=== PATIENT | male | born 1985 | race Two or more races ===

== ENCOUNTER 2018-07-21 13:13 | Inpatient (IN) | payer MEDICAID ==
[2018-07-21 15:50] LABS: BASO # 0.1 K/uL (0.0-0.2); BASO % 0.6 % (0.0-2.0); EOS # 0.2 K/uL (0.0-0.7); EOS % 1.6 % (0.0-4.0); HEMOGLOBIN 14.9 g/dL (12.0-18.0); LYMPH # 2.4 K/uL (1.0-4.3); LYMPH % 25.7 % (20.0-40.0); MEAN CELL VOLUME 91.5 fl (80.0-94.0); MEAN CORPUSCULAR HEMOGLOBIN 30.6 pg (27.0-31.0); MEAN CORPUSCULAR HGB CONC 33.4 g/dL (33.0-37.0); MEAN PLATELET VOLUME 8.3 fl (7.2-11.7); MONO % 10.5 % (0.0-10.0); NEUT # 5.8 K/uL (1.8-7.0); NEUT % 61.6 % (50.0-75.0); NRBC % 0.1 % (0.0-0.0); RBC 4.89 Mil/uL (4.40-5.90); RED CELL DISTRIBUTION WIDTH 13.9 % (11.5-14.5); WHITE BLOOD COUNT 9.5 K/uL (4.8-10.8)
--- NOTE | 2018-07-21 15:58 | RAD ---
Date of service: 07/21/2018 HISTORY: productive cough COMPARISON: No prior. TECHNIQUE: Chest PA and lateral FINDINGS: LUNGS: No active pulmonary disease. PLEURA: No significant pleural effusion identified. No pneumothorax apparent. CARDIOVASCULAR: Normal. OSSEOUS STRUCTURES: No significant abnormalities. VISUALIZED UPPER ABDOMEN: Normal. OTHER FINDINGS: None. IMPRESSION: No active disease.
[2018-07-21 16:03] LABS: BLOOD UREA NITROGEN 14 mg/dl (9-20); GFR NON-AFRICAN AMERICAN > 60
[2018-07-21 16:04] LABS: ALB/GLOB RATIO 1.3 (1.0-2.1); ALBUMIN 4.3 g/dL (3.5-5.0); ALT/SGPT 54 U/L (21-72); AST/SGOT 40 U/L (17-59); CALCIUM 9.3 mg/dL (8.4-10.2)
[2018-07-21 16:20] LABS: BARBITURATES, UR NEGATIVE (NEGATIVE); BENZODIAZEPINES, UR NEGATIVE (NEGATIVE); OPIATES, UR NEGATIVE (NEGATIVE); PHENCYCLIDINE, UR NEGATIVE (NEGATIVE)
--- NOTE | 2018-07-21 17:04 | ED PDOC ---
HPI: Psych/Substance Abuse Chief Complaint (Provider): Psychiatric Evaluation History Per: Patient History/Exam Limitations: no limitations Onset/Duration Of Symptoms: Days (x3) Current Symptoms Are (Timing): Still Present Additional Complaint(s): 32 year old male with hx of bipolar disorder presents to the ED for evaluation of suicidal ideation for the past three days with a plan to cut his wrists. Patient admits to being complaint on medications for his bipolar, and follows up with a therapist and a psychiatrist with whom he had appointments with today and tomorrow respectively. Due to him feeling as if he needed immediate help, he informed his doctors he was just coming straight to the ER instead of waiting f or their appointments. He is worried about harming himself and is seeking admission to the hospital. Additionally, he is complaining of a mild cough productive of yellow sputum. Otherwise denies homicidal ideation, visual / auditory hallucinations, fever, chills, headache, back pain, nausea, vomiting, abdominal pain, chest pain, and shortness of breath. PMD: Jenn Castro <Anette Mclaughlin - Last Filed: 07/22/18 23:53> <Belinda Green - Last Filed: 07/23/18 17:27> Time Seen by Provider: 07/21/18 13:30 Chief Complaint (Nursing): Psychiatric Evaluation Supervising Attending Note - Attestation: I have personally seen and examined this patient.: No I have reviewed all pertinent clinical information, including history, physical exam and plan: Yes <Belinda Green - Last Filed: 07/23/18 17:27> Past Medical History Reviewed: Historical Data Vital Signs: Last Vital Signs Temp 98.1 F 07/21/18 13:17 Pulse 74 07/21/18 13:17 Resp 18 07/21/18 13:17 BP 139/75 07/21/18 13:17 Pulse Ox 99 07/21/18 13:17 - Medical History PMH: Bipolar Disorder Denies: Diabetes, Hepatitis, HIV, HTN, Seizures, Sexually Transmitted Disease - Surgical History Surgical History: No Surg Hx - Family History Family History: States: Unknown Family Hx - Social History Current smoker - smoking cessation education provided: No Alcohol: None Drugs: Denies <Anette Mclaughlin - Last Filed: 07/22/18 23:53> Vital Signs: Last Vital Signs Temp 98.8 F 07/23/18 09:20 Pulse 70 07/23/18 09:20 Resp 17 07/23/18 09:20 BP 137/70 07/23/18 09:20 Pulse Ox 99 07/22/18 23:54 <Belinda Green F - Last Filed: 07/23/18 17:27> - Home Medications Home Medications: Ambulatory Orders Medication Instructions Recorded Lamotrigine [Lamictal] 200 mg PO DAILY 07/21/18 - Allergies Allergies/Adverse Reactions: Allergies Allergy/AdvReac Type Severity Reaction Status Date / Time No Known Allergies Allergy Verified 07/21/18 13:17 Review of Systems ROS Statement: Except As Marked, All Systems Reviewed And Found Negative Constitutional: Negative for: Fever, Chills Cardiovascular: Negative for: Chest Pain Respiratory: Positive for: Cough (mild productive of yellow sputum). Negative for: Shortness of Breath Gastrointestinal: Negative for: Nausea, Vomiting, Abdominal Pain Musculoskeletal: Negative for: Back Pain Neurological: Negative for: Headache Psych: Positive for: Suicidal ideation (with plan; but no homicidal ideation). Negative for: Other (visual / auditory hallucinations) <Anette Mclaughlin - Last Filed: 07/22/18 23:53> Physical Exam - Reviewed Nursing Documentation Reviewed: Yes Vital Signs Reviewed: Yes - Physical Exam Appears: Positive for: No Acute Distress Head Exam: Positive for: ATRAUMATIC, NORMOCEPHALIC Skin: Positive for: Normal Color, Warm, Dry. Negative for: Rash Eye Exam: Positive for: Normal appearance, EOMI, PERRL ENT: Positive for: Normal ENT Inspection Neck: Positive for: Normal, Painless ROM, Supple Cardiovascular/Chest: Positive for: Regular Rate, Rhythm Respiratory: Positive for: Rhonchi (diffuse scattered bilaterally, but no retracting). Negative for: Wheezing, Respiratory Distress Extremity: Positive for: Normal ROM Neurologic/Psych: Positive for: Alert, Oriented (x3) <Anette Mclaughlin - Last Filed: 07/22/18 23:53> - Laboratory Results Result Diagrams: 07/21/18 15:30 07/21/18 14:40 - ECG O2 Sat by Pulse Oximetry: 99 (RA) Pulse Ox Interpretation: Normal <Anette Mclaughlin - Last Filed: 07/22/18 23:53> - Laboratory Results Result Diagrams: 07/21/18 15:30 07/21/18 14:40 <Belinda Green - Last Filed: 07/23/18 17:27> Medical Decision Making Medical Decision Making: Time: 1337 Initial Impression: suicidal ideation with plan, bipolar disorder Initial Plan: --EKG --Alcohol serum --CMP --Drug screen --Crisis eval --CBC with differential --CXR --1:1 observation 1556 CXR FINDINGS: LUNGS: No active pulmonary disease. PLEURA: No significant pleural effusion identified. No pneumothorax apparent. CARDIOVASCULAR: Normal. OSSEOUS STRUCTURES: No significant abnormalities. VISUALIZED UPPER ABDOMEN: Normal. OTHER FINDINGS: None. IMPRESSION: No active disease. 1749 Case discussed with home weatherizing worker who states pt is to be admitted with the diagnosis of bipolar disorder under the instruction of Dr. Ibarra. Talked with attending Dr. Kerns who is to place the order for admission. Scribe Attestation: Documented by Nela Uribe, acting as a scribe for Anette Mclaughlin PA-C. Provider Scribe Attestation: All medical record entries made by the Scribe were at my direction and personally dictated by me. I have reviewed the chart and agree that the record a ccurately reflects my personal performance of the history, physical exam, medical decision making, and the department course for this patient. I have also personally directed, reviewed, and agree with the discharge instructions and disposition. <Anette Mclaughlin - Last Filed: 07/22/18 23:53> Disposition - Patient ED Disposition Is Patient to be Admitted: Yes - Disposition Disposition Time: 15:00 - Pt Status Changed To: Hospital Disposition Of: Inpatient - Admit Certification Admit to Inpatient:: After my assessment, the patient will require hospitalization for at least two midnights. This is because of the severity of symptoms shown, intensity of services needed, and/or the medical risk in this patient being treated as an outpatient. <Anette Mclaughlin - Last Filed: 07/22/18 23:53> <Belinda Green - Last Filed: 07/23/18 17:27> - Clinical Impression Clinical Impression: Bipolar disorder - Disposition Condition: STABLE
[2018-07-21] MEDS ORDERED: Alum-Mag Hydrox-Simethicone Susp (30 mL) PO PRN (21:25)
[2018-07-21] MEDS ORDERED: DiphenhydrAMINE 50 mg/ml Inj IM PRN (21:25)
[2018-07-21] MEDS ORDERED: Magnesium Hydroxide Susp 30 ml UD PO PRN (21:25)
--- NOTE | 2018-07-21 21:42 | PCM.BM ---
<Dariel Mcdonald P - Last Filed: 07/21/18 21:40> Treatment Plan Problems - Problems identified on initial assessmt Ineffective Impulse Control Date Initiated: 07/21/18 Time Initiated: 21:40 Assessment reference: NA Status: Active Self Harm Date Initiated: 07/21/18 Time Initiated: 21:41 Assessment reference: NA Status: Active Treatment assets and liabiliti Patient Assests: cooperative, educated, ADL independent, physically healthy, good support system, negotiates basic needs, cognitively intact Patient Liabilities: substance abuse - Milieu Protocol Maintain good personal hygiene: daily Encourage regular showers, daily Remind patient to perform daily oral care, daily Assist patient to perform ADL's Conduct patient checks and document Observation sheet: Q15 minutes Maintain personal safety: every shift Educate patient to report safety concerns to staff, every shift Monitor environment for contraband/sharps Medication safety: Monitor for expected outcome, potential side effects: every shift, Assess barriers to learning: every shift, Assess readiness for medication education: every shift <Marian Gant - Last Filed: 07/23/18 15:12> - Diagnosis (1) Suicidal ideation Status: Acute Interventions: psychotherapy, pharmacotherapy 07/23/18 15:12
--- NOTE | 2018-07-22 07:03 | CARD ---
APPROVED REPORT Date of service: 07/21/2018 EKG Measurement Heart [id number] <Conclusion> Normal sinus rhythm with sinus arrhythmia Normal ECG
[2018-07-22 09:45] LABS: T4 7.56 ug/dl (5.5-11.0)
[2018-07-22] MEDS ORDERED: Venlafaxine 37.5 mg ER Cap PO STA (11:49)
--- NOTE | 2018-07-22 13:27 | PCM.PSYCH ---
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 was given the money to complete the roject with the deadline at end of july yet he did spend the money and because of his depression was unable to do the work which makes him feel overwhelmed, pt two weeks ago did cut his wrist superficially pt reported low energy poor sleep anhedonia, poor appetite, , increased sleep,continues to have passive suicidal ideation on the unit without active plan denied perceptual disturbances, uses cannabis twice a week Current Medications: Active Medications Generic Name Dose Route Start Last Admin Trade Name Freq PRN Reason Stop Dose Admin Acetaminophen 650 mg 07/21/18 21:25 Tylenol 325mg Tab PO Q4 PRN pain level 4-7 Al Hydrox/Mg Hydrox/Simethicone 30 ml 07/21/18 21:25 Maalox Plus 30 Ml PO Q4 PRN Dyspepsia Diphenhydramine HCl 50 mg 07/21/18 21:25 Benadryl IM Q6 PRN Extrapyramidal S/S Unable PO Diphenhydramine HCl 50 mg 07/21/18 21:25 Benadryl PO Q6 PRN Extrapyramidal Symptoms Diphenhydramine HCl 50 mg 07/21/18 21:28 07/21/18 23:19 Benadryl PO 50 mg HS PRN Administration Sleep Haloperidol 5 mg 07/21/18 21:25 Haldol PO Q4 PRN Agitation Haloperidol Lactate 5 mg 07/21/18 21:25 Haldol IM Q4 PRN Agitation, Unable to Take PO Lorazepam 1 mg 07/21/18 21:25 Ativan IM Q8H PRN Anxiety/Agitation,Unable PO Lorazepam 1 mg 07/21/18 21:25 Ativan PO Q8 PRN Anxiety/Agitation Magnesium Hydroxide 30 ml 07/21/18 21:25 Milk Of Magnesia PO HS PRN Constipation Past Psychiatric History - Past Psychiatric History Explanation of prior treatment: two inpatient hospitalizations for depression, age 24 at [facility] and past april at [facility] History of ETOH/Drug Use: hx of cocaine and cannabis use Pertinent Medical Hx (Current Medical&Sleep Prob, Allergies): Allergies Allergy/AdvReac Type Severity Reaction Status Date / Time No Known Allergies Allergy Verified 07/21/18 13:17 Lamotrigine [Lamictal] 200 mg PO DAILY 07/21/18 Mental Status Examination - Personal Presentation Personal Presentation: Looks stated age - Affect Affect: Constricted, Depressed - Motor Activity Motor Activity: Psychomotor Retardation - Reliability in Providing Information Reliability in Providing Information: Fair - Speech Speech: Relevant - Mood Mood: Depressed - Formal Thought Process Formal Thought Process: No Impairment - Obsessions/Compulsions Obsessions: No Compulsions: No - Cognitive Functions Orientation: Person, Place, Situation, Time Sensorium: Alert Estimate of Intelligence: Average - Risk Risk: Suicidal, Self-mutilation, Diminished functioning - Strength & Assets Inventory Strength & Assets Inventory: Education - Limitations Additional comments: financial stressors DSM 5 DX - DSM 5 DSM 5 Diagnosis: bipolar II disorder MRE depressed severe - Recommended/Plan of Treatment Treatment Recommendations and Plan of Treatment: lamictal 200mg daily effexor 37.5mg daily CBT group and supportive therapy 'internal medicine consult
--- NOTE | 2018-07-22 19:12 | CP.PCM.CON ---
History of Present Illness - History of Present Illness History of Present Illness: 32 yo male with history of Bipolar DO admitted to psyche unit because of suicidal ideation. Review of Systems - Review of Systems All systems: reviewed and no additional remarkable complaints except (aside from those mentioned above, 12 point system review were negative by me) Past Patient History - Tetanus Immunizations Tetanus Immunization: Unknown - Past Medical History & Family History Past Medical History?: No Past Family History: Reviewed and not pertinent - Past Social History Smoking Status: Light Smoker < 10 Cigarettes Daily Chewing Tobacco Use: No Cigar Use: No Alcohol: Occasional Drugs: Cannabis - CARDIAC Hx Cardiac Disorders: No Hx Hypertension: No - PULMONARY Hx Respiratory Disorders: No Hx Tuberculosis: No - NEUROLOGICAL Hx Neurological Disorder: No Hx Seizures: No - HEENT Hx HEENT Problems: No - RENAL Hx Chronic Kidney Disease: No - ENDOCRINE/METABOLIC Hx Endocrine Disorders: No - HEMATOLOGICAL/ONCOLOGICAL Hx Blood Disorders: No Hx Human Immunodeficiency Virus (HIV): No - INTEGUMENTARY Hx Dermatological Problems: No - MUSCULOSKELETAL/RHEUMATOLOGICAL Hx Musculoskeletal Disorders: No - GASTROINTESTINAL Hx Gastrointestinal Disorders: No - GENITOURINARY/GYNECOLOGICAL Hx Genitourinary Disorders: No Hx Sexually Transmitted Disorders: No - PSYCHIATRIC Hx Substance Use: Yes - SURGICAL HISTORY Hx Surgeries: Yes Other/Comment: right knee sx @ age 11 - ANESTHESIA Hx Anesthesia: Yes Hx Anesthesia Reactions: No Meds Allergies/Adverse Reactions: Allergies Allergy/AdvReac Type Severity Reaction Status Date / Time No Known Allergies Allergy Verified 07/21/18 13:17 - Medications Medications: Current Medications Acetaminophen (Tylenol 325mg Tab) 650 mg PO Q4 PRN PRN Reason: pain level 4-7 Al Hydrox/Mg Hydrox/Simethicone (Maalox Plus 30 Ml) 30 ml PO Q4 PRN PRN Reason: Dyspepsia Diphenhydramine HCl (Benadryl) 50 mg IM Q6 PRN PRN Reason: Extrapyramidal S/S Unable PO Diphenhydramine HCl (Benadryl) 50 mg PO Q6 PRN PRN Reason: Extrapyramidal Symptoms Diphenhydramine HCl (Benadryl) 50 mg PO HS PRN PRN Reason: Sleep Last Admin: 07/21/18 23:19 Dose: 50 mg Haloperidol (Haldol) 5 mg PO Q4 PRN PRN Reason: Agitation Haloperidol Lactate (Haldol) 5 mg IM Q4 PRN PRN Reason: Agitation, Unable to Take PO Lamotrigine (Lamictal) 200 mg PO DAILY [facility] Lorazepam (Ativan) 1 mg IM Q8H PRN PRN Reason: Anxiety/Agitation,Unable PO Lorazepam (Ativan) 1 mg PO Q8 PRN PRN Reason: Anxiety/Agitation Magnesium Hydroxide (Milk Of Magnesia) 30 ml PO HS PRN PRN Reason: Constipation Trazodone HCl (Desyrel) 50 mg PO HS PRN PRN Reason: Insomnia Venlafaxine HCl (Effexor Xr) 37.5 mg PO DAILY [facility] Physical Exam - Constitutional Appears: No Acute Distress - Head Exam Head Exam: ATRAUMATIC - Eye Exam Eye Exam: absent: Scleral icterus - ENT Exam ENT Exam: Mucous Membranes Moist - Neck Exam Neck exam: Negative for: Meningismus - Respiratory Exam Respiratory Exam: absent: Rales, Rhonchi, Wheezes, Respiratory Distress - Cardiovascular Exam Cardiovascular Exam: REGULAR RHYTHM, +S1, +S2 - GI/Abdominal Exam GI & Abdominal Exam: Soft. absent: Tenderness - Rectal Exam Rectal Exam: Deferred - Extremities Exam Extremities exam: Negative for: pedal edema - Back Exam Back exam: NORMAL INSPECTION - Neurological Exam Neurological exam: Alert, Oriented x3 - Psychiatric Exam Psychiatric exam: Normal Affect - Skin Skin Exam: Dry, Intact Results - Vital Signs Recent Vital Signs: Last Vital Signs Temp 97.3 F L 07/21/18 21:30 Pulse 54 L 07/21/18 21:30 Resp 18 07/21/18 21:30 BP 140/71 07/21/18 21:30 Pulse Ox 98 07/21/18 20:08 - Labs Result Diagrams: 07/21/18 15:30 07/21/18 14:40 Labs: Laboratory Results - last 24 hr 07/22/18 07/22/18 07/22/18 09:05 09:05 09:05 Hemoglobin A1c 5.4 Triglycerides 127 Cholesterol 194 LDL Cholesterol Direct 114 HDL Cholesterol 39 Thyroxine (T4) 7.56 TSH 3rd Generation 1.53 RPR Nonreactive Assessment & Plan (1) Suicidal ideation Status: Acute Comment: psyche is managing
[2018-07-22 23:55] VITALS: O2SAT 99
[2018-07-23] MEDS: Venlafaxine 37.5 mg ER Cap PO SCH (08:44)
--- NOTE | 2018-07-23 15:24 | PCM.PYCHPN ---
Psychiatric Progress Note - Psychiatric Progress Note Patient seen today, length of contact: pt evaluated discussed with team chart reviewed Patient Chief Complaint: I still get thoughts to hurt myself but I try to cope with them Problems Identified/Issues Discussed: pt evaluated with treatment team, continues to feel down, passive suicidal ideation without current plan, reported poor sleep with late insomnia, discussed with pt gradualy increasing lamictal and effexor. no reported side effects denied any current perceptual disturbances, encouraged to attend groups Medical Problems: two inpatient hospitalizations for depression, age 24 at [facility] and past april at [facility] DSM 5 Symptoms Update: bipolar II disorder depressed severe without psychotic features Medication Change: Yes Medical Record Reviewed: Yes Mental Status Examination - Cognitive Function Orientation: Person, Place, Situation, Time Memory: Intact Attention: WNL Concentration: WNL Association: WNL Fund of Knowledge: [facility] Decription of patient's judgement and insights: partial insight , fair judgment - Mood Mood: Depressed - Affect Affect: Constricted, Depressed - Speech Speech: Appropriate - Formal Thought Process Formal Thought Process: No Impairment Psychotic Thoughts and Behaviors: pt denied psychotic symptoms , non elicited - Suicidal Ideation Suicidal Ideation: No - Homicidal Ideation Homicidal Ideation: No Goal/Treatment Plan - Goal/Treatment Plan Need for Continued Stay: Severe depression anxiety, Discharge may exacerbated symptoms Progress Toward Problem(s) and Goals/Treatment Plan: lamictal 225mg daily and effexor 37.5mg daily CBT group and supportive therapy ' Estimated Date of D/C: 07/25/18
[2018-07-24] MEDS: Venlafaxine 37.5 mg ER Cap PO SCH (08:48)
[2018-07-24] MEDS ORDERED: Divalproex 500 mg DR(BID formulation) PO STA (10:56)
--- NOTE | 2018-07-24 16:54 | PCM.PYCHPN ---
Psychiatric Progress Note - Psychiatric Progress Note Patient seen today, length of contact: pt evaluated discussed with team chart reviewed Patient Chief Complaint: I have so much anger inside me and I want to destroy things Problems Identified/Issues Discussed: pt observed pacing on the unit angry , irritable , anxious and edgy, reporting feeling he could not sit still and having a lot of anger , feeling destructive , noted to have scratches on his wrist , pt reported he did push and scratch his hand against the window screen as he had thoughts to self mutilate to feel better pt reported that he continues to have rapid mood swings with times of elation and high energy alternating with agitation and anger within hours, reported racing thoughts, discussed with pt possibility of rapid cycling bipolar and the need to start depakote with gradual down titration of lamictal, CBT provided, discussing with pt the need to develop healthier coping skills other than self harm pt denied any current thoughts of self mutilation denied perceptual disturbances Medical Problems: two inpatient hospitalizations for depression, age 24 at [facility] and past april at [facility] DSM 5 Symptoms Update: bipolar disorder mixed severe Medication Change: Yes (start depakote) Medical Record Reviewed: Yes Mental Status Examination - Cognitive Function Orientation: Person, Place, Situation, Time Memory: Intact Attention: WNL Concentration: WNL Association: WNL Fund of Knowledge: [facility] Decription of patient's judgement and insights: partial insight , fair judgment - Mood Mood: Depressed, Anxious - Affect Affect: Constricted, Depressed Additional comments: labile, angry irritable - Speech Speech: Appropriate - Formal Thought Process Formal Thought Process: No Impairment Psychotic Thoughts and Behaviors: pt denied psychotic symptoms , non elicited - Suicidal Ideation Suicidal Ideation: No - Homicidal Ideation Homicidal Ideation: No Goal/Treatment Plan - Goal/Treatment Plan Need for Continued Stay: Severe depression anxiety, Discharge may exacerbated symptoms Progress Toward Problem(s) and Goals/Treatment Plan: start depakote 500mg bid decrease lamictal to 200mg with plan to downtitrate gradually discontinue effexor monitor pt for psychopharmacological effects and side effect profile CBT group and supportive therapy ' Estimated Date of D/C: 07/25/18
[2018-07-25] MEDS ORDERED: Divalproex 500 mg DR(BID formulation) PO STA (12:02)
--- NOTE | 2018-07-25 14:19 | PCM.PYCHPN ---
Psychiatric Progress Note - Psychiatric Progress Note Patient seen today, length of contact: pt evaluated discussed with team chart reviewed Patient Chief Complaint: I still get irritable and I have thoughts to hurt myself Problems Identified/Issues Discussed: pt evaluated, presenting with labile affect, reported mood swings, racing thoughts, self harm thoughts with plan to cut wrist, pt unable to verbalize inducing stressors, , irritable and dysphoric with limited speech partial eye contact, denied perceptual disturbances, no reported side effects of medications CBT provided, discussing with pt the need to develop healthier coping skills other than self harm, discussed increasing depakote and adding abilify Medical Problems: two inpatient hospitalizations for depression, age 24 at [facility] and past april at [facility] DSM 5 Symptoms Update: bipolar I disorder mixed severe Medication Change: Yes (increase depakote ) Medical Record Reviewed: Yes Mental Status Examination - Cognitive Function Orientation: Person, Place, Situation, Time Memory: Intact Attention: WNL Concentration: WNL Association: WNL Fund of Knowledge: WNL Decription of patient's judgement and insights: partial insight , fair judgment - Mood Mood: Depressed, Anxious - Affect Affect: Constricted, Depressed Additional comments: dysphoric - Speech Speech: Soft - Formal Thought Process Formal Thought Process: No Impairment Psychotic Thoughts and Behaviors: pt denied psychotic symptoms , non elicited - Suicidal Ideation Suicidal Ideation: Yes - Homicidal Ideation Homicidal Ideation: No Goal/Treatment Plan - Goal/Treatment Plan Need for Continued Stay: Severe depression anxiety, Discharge may exacerbated symptoms Progress Toward Problem(s) and Goals/Treatment Plan: increase depakote 500mg daily and 1000mg qhs, will follow up on depakote level start abilify 5mg daily decrease lamictal to 100mg daily with plan to discontinue monitor pt for psychopharmacological effects and side effect profile CBT group and supportive therapy ' Estimated Date of D/C: 08/01/18
[2018-07-25] MEDS: Divalproex 500 mg DR(BID formulation) PO SCH (21:14)
--- NOTE | 2018-07-26 12:11 | PCM.PYCHPN ---
Psychiatric Progress Note - Psychiatric Progress Note Patient seen today, length of contact: pt evaluated discussed with team chart reviewed Patient Chief Complaint: I had a loot of night verma and racing thoughts I could not sleep Problems Identified/Issues Discussed: pt evaluated,continues to report racing thoughts, rapid cycling of mood, irritability, poor sleep, with night verma, passive suicidal thoughts without active plan or intent on the unit CBT provided, discussing with pt the need to develop healthier coping skills other than self harm, discussed increasing depakote and adding prazosin denied homicidal thoughts denied perceptual disturbances Medical Problems: two inpatient hospitalizations for depression, age 24 at [facility] and past april at [facility] DSM 5 Symptoms Update: bipolar disorder mixed severe borderline personality traits Medication Change: Yes (increase depakote ) Medical Record Reviewed: Yes Mental Status Examination - Cognitive Function Orientation: Person, Place, Situation, Time Memory: Intact Attention: WNL Concentration: WNL Association: [facility] Fund of Knowledge: [facility] Decription of patient's judgement and insights: partial insight , fair judgment - Mood Mood: Depressed, Anxious - Affect Affect: Constricted, Depressed Additional comments: labile , irritable - Speech Speech: Soft - Formal Thought Process Formal Thought Process: No Impairment Psychotic Thoughts and Behaviors: pt denied psychotic symptoms , non elicited - Suicidal Ideation Suicidal Ideation: No - Homicidal Ideation Homicidal Ideation: No Goal/Treatment Plan - Goal/Treatment Plan Need for Continued Stay: Severe depression anxiety, Discharge may exacerbated symptoms Progress Toward Problem(s) and Goals/Treatment Plan: pt denied any current active suicidal thoughts or intent on the unit, discontinue 1:1 observation increase depakote 500mg daily and 1000mg qhs, will follow up on depakote level abilify 5mg daily decrease lamictal to 50mg daily with plan to discontinue monitor pt for psychopharmacological effects and side effect profile CBT group and supportive therapy ' Estimated Date of D/C: 08/01/18
[2018-07-26] MEDS: Divalproex 500 mg DR(BID formulation) PO SCH (21:15)
[2018-07-27] MEDS: Divalproex 500 mg DR(BID formulation) PO SCH ×2 (09:06→21:22)
--- NOTE | 2018-07-27 10:53 | PCM.BM ---
Treatment Plan Problems - Problems identified on initial assessmt Ineffective Impulse Control Date Initiated: 07/21/18 Time Initiated: 21:40 Assessment reference: NA Status: Active Self Harm Date Initiated: 07/21/18 Time Initiated: 21:41 Assessment reference: NA Status: Active Hopelessness/Helplessness Date Initiated: 07/27/18 Time Initiated: 10:53 Assessment reference: NA Status: Active Treatment assets and liabiliti Patient Assests: cooperative, educated, ADL independent, physically healthy, good support system, negotiates basic needs, cognitively intact Patient Liabilities: substance abuse - Milieu Protocol Maintain good personal hygiene: daily Encourage regular showers, daily Remind patient to perform daily oral care, daily Assist patient to perform ADL's Conduct patient checks and document Observation sheet: Q15 minutes Maintain personal safety: every shift Educate patient to report safety concerns to staff, every shift Monitor environment for contraband/sharps Medication safety: Monitor for expected outcome, potential side effects: every shift, Assess barriers to learning: every shift, Assess readiness for medication education: every shift Milieu Narrative: pt denied any current active suicidal thoughts or intent on the unit, discontinue 1:1 observation increase depakote 500mg daily and 1000mg qhs, will follow up on depakote level abilify 5mg daily decrease lamictal to 50mg daily with plan to discontinue monitor pt for psychopharmacological effects and side effect profile CBT group and supportive therapy ' Discharge/Continuing Care - Treatment Team Participation Patient/Family/SO Statement: pt denied any current active suicidal thoughts or intent on the unit, discontinue 1:1 observation increase depakote 500mg daily and 1000mg qhs, will follow up on depakote level abilify 5mg daily decrease lamictal to 50mg daily with plan to discontinue monitor pt for psychopharmacological effects and side effect profile CBT group and supportive therapy '
--- NOTE | 2018-07-27 13:29 | PCM.PYCHPN ---
Psychiatric Progress Note - Psychiatric Progress Note Patient seen today, length of contact: pt evaluated discussed with team chart reviewed Patient Chief Complaint: I am not able to cope with my problems and I do not see a way out Problems Identified/Issues Discussed: pt evaluated,angry irritable, pacing on the unit,reported poor sleep with night verma, reported continues to have racing thoughts , unable to cope with continues to feel like he can hurt himself impulsively if he faces the outside world with all the stressors in it, pt continues to feel hopeless and angry pt after interviewing him and discussing possible coping skills with anger, started pacing again on the unit, banging on the doors and attemptin to flip a table, pt had to be chemically restrained for safety of self and others Medical Problems: two inpatient hospitalizations for depression, age 24 at [facility] and past april at [facility] DSM 5 Symptoms Update: bipolar I disorder mixed severe cannabis using disorder Medication Change: Yes (stop lamictal) Medical Record Reviewed: Yes Mental Status Examination - Cognitive Function Orientation: Person, Place, Situation, Time Memory: Intact Attention: Poor Concentration: Poor Association: WNL Fund of Knowledge: [facility] Decription of patient's judgement and insights: partial insight , fair judgment - Mood Mood: Depressed, Anxious - Affect Affect: Constricted, Depressed Additional comments: angry labile irritable - Speech Speech: Soft, Pressured - Formal Thought Process Formal Thought Process: No Impairment Psychotic Thoughts and Behaviors: pt denied psychotic symptoms , non elicited - Suicidal Ideation Suicidal Ideation: No - Homicidal Ideation Homicidal Ideation: No Goal/Treatment Plan - Goal/Treatment Plan Need for Continued Stay: Severe depression anxiety, Discharge may exacerbated symptoms Progress Toward Problem(s) and Goals/Treatment Plan: pt angry labile irritable, threatening . not responding to current treatment, needs a higher level of care pt will be referred for screening for involuntary admission increase abilify 10mg daily discontinue lamictal depakote 1500mg daily follow up on depakote level monitor pt for psychopharmacological effects and side effect profile CBT group and supportive therapy ' Estimated Date of D/C: 08/01/18
[2018-07-28] MEDS: Divalproex 500 mg DR(BID formulation) PO SCH ×2 (08:32→21:06)
[2018-07-28 10:04] LABS: URINE BILIRUBIN NEGATIVE (NEGATIVE); URINE BLOOD NEGATIVE (NEGATIVE); URINE CLARITY CLEAR (Clear); URINE COLOR YELLOW (YELLOW); URINE GLUCOSE (UA) NEG (Normal); URINE LEUKOCYTE ESTERASE NEG Leu/uL (Negative); URINE PROTEIN NEGATIVE (NEGATIVE); URINE UROBILINOGEN 0.2-1.0 mg/dL (0.2-1.0)
--- NOTE | 2018-07-28 14:39 | PCM.PYCHPN ---
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, discussed the possibility of partial hospital program as a possibility for follow up , attending groups, denied perceptual disturbances Medical Problems: two inpatient hospitalizations for depression, age 24 at [facility] and past april at [facility] Medication Change: No Medical Record Reviewed: Yes Mental Status Examination - Cognitive Function Orientation: Person, Place, Situation, Time Memory: Intact Attention: WNL Concentration: WNL Association: WN Fund of Knowledge: [facility] Decription of patient's judgement and insights: partial insight , fair judgment - Mood Mood: Depressed, Anxious - Affect Affect: Constricted, Depressed - Speech Speech: Soft, Pressured - Formal Thought Process Formal Thought Process: No Impairment Psychotic Thoughts and Behaviors: pt denied psychotic symptoms , non elicited - Suicidal Ideation Suicidal Ideation: No - Homicidal Ideation Homicidal Ideation: No Goal/Treatment Plan - Goal/Treatment Plan Need for Continued Stay: Severe depression anxiety, Discharge may exacerbated symptoms Progress Toward Problem(s) and Goals/Treatment Plan: abilify 10mg daily depakote 1500mg daily follow up on depakote level monitor pt for psychopharmacological effects and side effect profile CBT group and supportive therapy ' Estimated Date of D/C: 08/01/18
[2018-07-29] MEDS: Divalproex 500 mg DR(BID formulation) PO SCH ×2 (08:29→21:01)
--- NOTE | 2018-07-29 12:17 | PCM.PYCHPN ---
Psychiatric Progress Note - Psychiatric Progress Note Patient seen today, length of contact: pt evaluated discussed with team chart reviewed Patient Chief Complaint: I do not have suicidal thoughts today Problems Identified/Issues Discussed: pt evaluated,reported mood more stable, affect calmer and less irritable, no reported side effects of medications, depakote level 84, pt reported no current suicidal ideation, no thoughts of self harm, requesting partial hospital program as a possibility for follow up , attending groups, denied perceptual disturbances Medical Problems: two inpatient hospitalizations for depression, age 24 at [facility] and past april at [facility] DSM 5 Symptoms Update: bipolar I disorder mixed severe Medication Change: No Medical Record Reviewed: Yes Mental Status Examination - Cognitive Function Orientation: Person, Place, Situation, Time Memory: Intact Attention: WNL Concentration: WNL Association: WN Fund of Knowledge: [facility] Decription of patient's judgement and insights: partial insight , fair judgment - Mood Mood: Anxious - Affect Affect: Constricted, Depressed - Speech Speech: Soft, Pressured - Formal Thought Process Formal Thought Process: No Impairment Psychotic Thoughts and Behaviors: pt denied psychotic symptoms , non elicited - Suicidal Ideation Suicidal Ideation: No - Homicidal Ideation Homicidal Ideation: No Goal/Treatment Plan - Goal/Treatment Plan Need for Continued Stay: Severe depression anxiety, Discharge may exacerbated symptoms Progress Toward Problem(s) and Goals/Treatment Plan: abilify 10mg daily depakote 1500mg daily monitor pt for psychopharmacological effects and side effect profile CBT group and supportive therapy referral to partial hospital on discharge ' Estimated Date of D/C: 08/01/18
[2018-07-30] MEDS: Divalproex 500 mg DR(BID formulation) PO SCH ×2 (08:45→21:07)
[2018-07-30 09:22] VITALS: PULSE 61; TEMP 96.9
--- NOTE | 2018-07-30 11:43 | PCM.PYCHPN ---
Psychiatric Progress Note - Psychiatric Progress Note Patient seen today, length of contact: pt evaluated discussed with team chart reviewed Patient Chief Complaint: I feel better and ready to restart on track Problems Identified/Issues Discussed: pt evaluated with treatment reported mood more stable, affect calmer and less irritable, no reported side effects of medications,, pt reported no current suicidal ideation, no thoughts of self harm, requesting partial hospital program as a possibility for follow up , attending groups, denied perceptual disturbances denied homicidal ideation, agrees to start partial hospital program Medical Problems: two inpatient hospitalizations for depression, age 24 at [facility] and past april at [facility] DSM 5 Symptoms Update: bipolar I disorder mixed severe Medication Change: No Medical Record Reviewed: Yes Mental Status Examination - Cognitive Function Orientation: Person, Place, Situation, Time Memory: Intact Attention: WNL Concentration: WNL Association: [facility] Fund of Knowledge: [facility] Decription of patient's judgement and insights: partial insight , fair judgment - Mood Mood: Anxious - Affect Affect: Constricted, Depressed - Speech Speech: Soft, Pressured - Formal Thought Process Formal Thought Process: No Impairment Psychotic Thoughts and Behaviors: pt denied psychotic symptoms , non elicited - Suicidal Ideation Suicidal Ideation: No - Homicidal Ideation Homicidal Ideation: No Goal/Treatment Plan - Goal/Treatment Plan Need for Continued Stay: Severe depression anxiety, Discharge may exacerbated symptoms Progress Toward Problem(s) and Goals/Treatment Plan: abilify 10mg daily depakote 1500mg daily CBT group and supportive therapy referral to partial hospital on discharge ' Estimated Date of D/C: 08/01/18
[2018-07-31] MEDS: Divalproex 500 mg DR(BID formulation) PO SCH (08:50)
[2018-07-31 09:23] VITALS: BP 140/83; RESP 17
--- NOTE | 2018-07-31 12:29 | PCM.PYCHDC ---
Mental Status Examination - Mental Status Examination Orientation: Person, Place, Situation Memory: Intact Affect: Broad Speech: Appropriate Attention: WNL Concentration: WNL Association: WNL Fund of Knowledge: WNL Formal Thought Process: No Impairment Description of patient's judgement and insight: partial insight , fair judgment Psychotic Thoughts and Behaviors: pt denied psychotic symptoms , non elicited Suicidal Ideation: No Current Homicidal Ideation?: No Discharge Summary - Discharge Note Reason for Hospitalization: pt is a 32ys old male with previous psychiatric diagnosis of bipolar II disorder, currently in treatment at [facility] outpatient presented to ER reporting having suicidal ideation with plan to cut his wrist, pt reported has been feeling increasingly depressed lately due to financial difficulties, 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 Reason for request. 2. Findings. 3. Follow-up Summary of Hospital Course include:: 1. Description of specific treatment plan utilized for patients during their course of treatmen. 2. Summarize the time- course for resolution of acute symptoms and/or regressed behaviors. 3. Describe issues identified and worked on during hospitalization. 4. Describe medication utilized. 5. Describe medical problems identified and treated. 6. Reassessment of suicide risk Summary of Hospital Course: pt on admission was started on lamictal with the addition of abilify, pt continued to complain of mood swings, edginess, irritability, continued to have suicidal ideation, and thoughts of self harm, pt was placed on 1:1 observation, pt presented with rapid cycling accordingly lamictal was gradually discontinued with starting depakote , depakote was increased to 1500mg daily and abilify was increased to 10mg depakote level noted to be 84, no reported side effects of medications, pt gradually presented with brighter affect, more stable mood, attended groups, compliant with treatment CBT provided discussing with pt coping skills with stress other than self harm motivational therapy provided in reference to cannabis use on discharge pt mental status was stable denied suicidal or homicidal ideation denied perceptual disturbances, follow up arranged by social sciences chair at [facility] outpatient services - Diagnosis (1) Suicidal ideation Current Visit: Yes Status: Acute - Final Diagnosis (DSM 5) Condition upon Discharge: STABLE Disposition: HOME/ ROUTINE Follow-up Treatment Plan: ' Prescriptions/Medication Reconciliation: ARIPiprazole [Abilify] 10 mg PO DAILY 30 Days #30 tab Divalproex [Depakote DR(*BID*)] 500 mg PO DAILY 30 Days #30 tcp Divalproex [Depakote DR(*BID*)] 1,000 mg PO HS 30 Days #60 tcp traZODone [Desyrel] 50 mg PO HS PRN 30 Days #30 tab PRN Reason: Insomnia - Antipsychotic Medications Pt discharged on 2 or more routine antipsychotic medications: No
== END 2018-07-31 15:44 | disposition home or self-care (01) | DRG 430 ==
LOC: H.ER 13:13 → H.ERHOLD 17:53 → H.PSYCH 21:22
PROVIDERS: ADMIT Psychiatry & Neurology Psychiatry; ATTEND Psychiatry & Neurology Psychiatry
PROC: GZHZZZZ Group Psychotherapy (ICD-10-PCS; principal; 2018-07-21)
PROC: GZ58ZZZ Individual Psychotherapy, Cognitive-Behavioral (ICD-10-PCS; 2018-07-21)
DX: F31.63 Bipolar disorder, current episode mixed, severe, without psychotic features (principal); F12.90 Cannabis use, unspecified, uncomplicated; R45.851 Suicidal ideations; Z78.1 Physical restraint status; F17.210 Nicotine dependence, cigarettes, uncomplicated

== ENCOUNTER 2018-12-23 16:21 | Inpatient (IN) | payer MEDICAID ==
[2018-12-23 16:29] VITALS: O2SAT 98
--- NOTE | 2018-12-23 17:44 | ED PDOC ---
HPI: Psych/Substance Abuse Time Seen by Provider: 12/23/18 16:37 Chief Complaint (Nursing): Abdominal Pain Chief Complaint (Provider): Abdominal pain History Per: Patient History/Exam Limitations: no limitations Additional Complaint(s): 33yo male with history of psychiatric illness, comes to ER stating he is feeling more frustrated, "crazy" over the past couple months. Patient states he has not followed up in the clinic and has been noncompliant with medication for the past 3 months. Patient reports suicidal ideation but offers no plan or attempts. He reports abdominal pain, attributes this to anxiety. Past Medical History Reviewed: Historical Data, Nursing Documentation, Vital Signs Vital Signs: Last Vital Signs Temp 97.6 F 12/23/18 16:28 Pulse 73 12/23/18 16:28 Resp 15 12/23/18 16:28 BP 151/83 H 12/23/18 16:28 Pulse Ox 98 12/23/18 16:28 - Medical History PMH: Bipolar Disorder, Depression Denies: Diabetes, Hepatitis, HIV, HTN, Chronic Kidney Disease, Seizures, Sexually Transmitted Disease - Surgical History Surgical History: No Surg Hx - Family History Family History: States: Unknown Family Hx - Home Medications Home Medications: Ambulatory Orders Medication Instructions Recorded ARIPiprazole [Abilify] 10 mg PO DAILY 30 Days #30 tab 07/31/18 Divalproex [Depakote DR(*BID*)] 1,000 mg PO HS 30 Days #60 tcp 07/31/18 Divalproex [Depakote DR(*BID*)] 500 mg PO DAILY 30 Days #30 tcp 07/31/18 traZODone [Desyrel] 50 mg PO HS PRN 30 Days #30 tab 07/31/18 - Allergies Allergies/Adverse Reactions: Allergies Allergy/AdvReac Type Severity Reaction Status Date / Time No Known Allergies Allergy Verified 12/23/18 16:29 Review of Systems ROS Statement: Except As Marked, All Systems Reviewed And Found Negative Gastrointestinal: Positive for: Abdominal Pain Psych: Positive for: Suicidal ideation Physical Exam - Reviewed Nursing Documentation Reviewed: Yes Vital Signs Reviewed: Yes - Physical Exam Appears: Positive for: No Acute Distress Head Exam: Positive for: ATRAUMATIC, NORMAL INSPECTION, NORMOCEPHALIC Skin: Positive for: Normal Color Eye Exam: Positive for: Normal appearance, EOMI, PERRL Neck: Positive for: Supple Cardiovascular/Chest: Positive for: Regular Rate, Rhythm Respiratory: Positive for: Normal Breath Sounds Gastrointestinal/Abdominal: Positive for: Soft. Negative for: Tenderness, Guarding, Rebound Extremity: Positive for: Normal ROM Neurological/Psych: Positive for: Awake, Alert, Normal Tone, Oriented (x 3), Mood/Affect (calm and cooperative). Negative for: Motor/Sensory Deficits - Laboratory Results Result Diagrams: 12/23/18 18:40 12/23/18 18:40 - ECG O2 Sat by Pulse Oximetry: 98 (RA) Pulse Ox Interpretation: Normal Medical Decision Making Medical Decision Makinyo male here reporting Suicidal ideation, abdominal pain Plan: -- labs -- crisis evaluation CXR: napd; as read by me EKG: SB at 53 bpm, no acute ischemic changes, QTc 377ms; as read by me. Pt. well appearing, abd. remains soft/nt. Pt. evaluated by crisis team, arrangements made for admission. Scribe Attestation: Documented by Doreen Mora acting as a scribe for ERIN Durant. Provider Attestation: All medical record entries made by the Scribe were at my direction and personal ly dictated by me. I have reviewed the chart and agree that the record accurately reflects my personal performance of the history, physical exam, medical decision making, and the department course for this patient. I have also personally directed, reviewed, and agree with the discharge instructions and disposition. Disposition - Clinical Impression Clinical Impression: Bipolar 1 disorder - Patient ED Disposition Is Patient to be Admitted: Yes Counseled Patient/Family Regarding: Studies Performed, Diagnosis - Disposition Disposition Time: 20:11 Condition: STABLE Forms: [employer] (Malay)
--- NOTE | 2018-12-23 18:27 | RAD ---
HISTORY: psych COMPARISON: Chest x-ray performed 07/21/18 TECHNIQUE: Chest PA and lateral FINDINGS: LUNGS: No focal consolidation. Please note that chest x-ray has limited sensitivity for the detection of pulmonary masses. PLEURA: No significant pleural effusion identified. No definite pneumothorax . CARDIOVASCULAR: Heart size appears within normal limits. No atherosclerotic calcification present. OSSEOUS STRUCTURES: No acute osseous abnormality identified. VISUALIZED UPPER ABDOMEN: Unremarkable. OTHER FINDINGS: None. IMPRESSION: No focal consolidation.
[2018-12-23 19:01] LABS: BASO # 0.1 K/uL (0.0-0.2); BASO % 0.6 % (0.0-2.0); EOS # 0.1 K/uL (0.0-0.7); EOS % 0.9 % (0.0-4.0); HEMOGLOBIN 13.5 g/dL (12.0-18.0); LYMPH # 2.5 K/uL (1.0-4.3); LYMPH % 26.6 % (20.0-40.0); MEAN CORPUSCULAR HGB CONC 32.9 g/dL (33.0-37.0); MEAN PLATELET VOLUME 8.1 fl (7.2-11.7); MONO # 0.7 K/uL (0.0-0.8); MONO % 7.7 % (0.0-10.0); NEUT # 6.1 K/uL (1.8-7.0); NEUT % 64.2 % (50.0-75.0); RBC 4.49 Mil/uL (4.40-5.90); RED CELL DISTRIBUTION WIDTH 13.6 % (11.5-14.5); WHITE BLOOD COUNT 9.4 K/uL (4.8-10.8)
[2018-12-23 19:04] LABS: ALB/GLOB RATIO 1.4 (1.0-2.1); ALBUMIN 4.1 g/dL (3.5-5.0); ALT/SGPT 41 U/L (21-72); AST/SGOT 36 U/L (17-59); BLOOD UREA NITROGEN 12 mg/dl (9-20); CALCIUM 9.4 mg/dL (8.4-10.2); GFR NON-AFRICAN AMERICAN > 60; LIPASE 61 U/L (23-300)
[2018-12-23 19:23] LABS: URINE BILIRUBIN NEGATIVE (NEGATIVE); URINE BLOOD NEGATIVE (NEGATIVE); URINE CLARITY SLIGHTY-CLOUDY (Clear); URINE COLOR YELLOW (YELLOW); URINE GLUCOSE (UA) NEG (NEGATIVE); URINE LEUKOCYTE ESTERASE NEG Leu/uL (Negative); URINE PROTEIN NEGATIVE (NEGATIVE); URINE UROBILINOGEN 0.2-1.0 mg/dL (0.2-1.0)
[2018-12-23 21:09] LABS: BARBITURATES, UR NEGATIVE (NEGATIVE); BENZODIAZEPINES, UR NEGATIVE (NEGATIVE); OPIATES, UR NEGATIVE (NEGATIVE); PHENCYCLIDINE, UR NEGATIVE (NEGATIVE)
[2018-12-23] MEDS ORDERED: Alum-Mag Hydrox-Simethicone Susp (30 mL) PO PRN (22:24)
[2018-12-23] MEDS ORDERED: Magnesium Hydroxide Susp 30 ml UD PO PRN (22:24)
[2018-12-23] MEDS ORDERED: DiphenhydrAMINE 50 mg/ml Inj IM PRN (22:24)
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
--- NOTE | 2018-12-24 08:39 | CARD ---
APPROVED REPORT Date of service: 12/23/2018 EKG Measurement Heart [id number] <Conclusion> Sinus bradycardia with sinus arrhythmia Otherwise normal ECG
[2018-12-24] MEDS ORDERED: Divalproex 500 mg DR(BID formulation) PO STA (12:03)
--- NOTE | 2018-12-24 13:47 | PCM.PSYCH ---
Initial Psychiatric Evaluation - Initial Psychiatric Evaluation Legal Status: Capacity Chief Complaint (in patient's own words): I am loosing my mind History of Present Illness and Precipitating Events: pt is 33ys old male with previous diagnosis of bipolar disorder, currently non compliant with medications or follow up, since last august, pt has been increasingly depressed in the context of inability to concentrate at work resulting in failure to meet deadlines , has been increasingly irritable, angry, with poor impulse control , episodes of being verbally abusive towards girl friend and mother, episodes of banging his head against the wall and punching h imself', pt on evaluation, unkempt, irritable, angry, reported feeling depressed , 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 SHE REPORTED THAT OF LATE HE WAS BEEN ANGRY, FRUSTRATED AND HAS HAD FITS OF RAGE WHICH ENDED UP WITH THE PT PACING, YELLING AND PUNCHING THINGS. SHE REPORTED THAT HIS HEAD IS NOT RIGHT AND HE CAN'T GET HIS THOUGHTS TOGETHER. 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 SHE REPORTED THAT HE SMOKES A LOT OF MARIJUANA TO HELP HIM MELLOW OUT. SHE ALSO REPORTED THAT HE IS IN DIRE NEED OF THE RIGHT MEDICATIONS IN ORDER TO STABILIZE HIS SYMPTOMS THAT HE CAN LIVE A PRODUCTIVE LIFE. PT'S MOTHER REPORTED THAT PT SUFFERS FROM OCD AND HAS MENTIONED MULTIPLE TIMES THOUGHTS TO KILL HIMSELF SUCH BY THROWING HIMSELF DOWN A FLIGHT OF STAIRS HEAD FIRST OR JUMPING OFF A BRIDGE. SHE REPORTED THAT HE WOULD GREATLY BENEFIT BY BEING ADMITTED. Current Medications: Active Medications Generic Name Dose Route Start Last Admin Trade Name Freq PRN Reason Stop Dose Admin Acetaminophen 650 mg 12/23/18 22:24 Tylenol 325mg Tab PO Q4 PRN pain 4-7 Al Hydrox/Mg Hydrox/Simethicone 30 ml 12/23/18 22:24 12/24/18 12:59 Maalox Plus 30 Ml PO 30 ml Q4 PRN Administration Dyspepsia Diphenhydramine HCl 50 mg 12/23/18 22:24 Benadryl IM Q6 PRN Extrapyramidal S/S Unable PO Diphenhydramine HCl 50 mg 12/23/18 22:24 Benadryl PO Q6 PRN Extrapyramidal Symptoms Diphenhydramine HCl 50 mg 12/23/18 22:24 Benadryl PO HS PRN Sleep Haloperidol 5 mg 12/23/18 22:24 Haldol PO Q4 PRN Agitation Haloperidol Lactate 5 mg 12/23/18 22:24 Haldol IM Q4 PRN Agitation, Unable to Take PO Lorazepam 2 mg 12/23/18 22:24 Ativan IM Q6 PRN Anxiety/Agitation,Unable PO Lorazepam 1 mg 12/23/18 22:24 12/23/18 23:07 Ativan PO 1 mg Q8 PRN Administration Anxiety/Agitation Magnesium Hydroxide 30 ml 12/23/18 22:24 Milk Of Magnesia PO HS PRN Constipation Past Psychiatric History - Past Psychiatric History Explanation of prior treatment: multiple inpatient hospitalizations, hx of non compliance with treatment History of ETOH/Drug Use: hx of cannabis and cocaine abuse Pertinent Medical Hx (Current Medical&Sleep Prob, Allergies): Allergies Allergy/AdvReac Type Severity Reaction Status Date / Time No Known Allergies Allergy Verified 12/23/18 16:29 ARIPiprazole [Abilify] 10 mg PO DAILY 30 Days #30 tab 07/31/18 Divalproex [Depakote DR(*BID*)] 1,000 mg PO HS 30 Days #60 tcp 07/31/18 Divalproex [Depakote DR(*BID*)] 500 mg PO DAILY 30 Days #30 tcp 07/31/18 traZODone [Desyrel] 50 mg PO HS PRN 30 Days #30 tab 07/31/18 Mental Status Examination - Personal Presentation Personal Presentation: Looks stated age Additional comments: unkempt - Affect Affect: Constricted Additional comments: angry irritable - Motor Activity Motor Activity: Psychomotor Agitation - Reliability in Providing Information Reliability in Providing Information: Poor, due to alteration in thoughts, Poor, due to altered mood - Speech Speech: Disorganized - Mood Mood: Depressed, Anxious - Formal Thought Process Formal Thought Process: Paranoia, Circumstantial - Obsessions/Compulsions Obsessions: No Compulsions: No - Cognitive Functions Orientation: Person, Place, Situation Sensorium: Alert Attention/Concentration: Easily distracted Judgement: Imparied, as evidence by: Poor judgement - Risk Risk: Suicidal, Homicidal, Diminished functioning - Strength & Assets Inventory Strength & Assets Inventory: Family support - Limitations Additional comments: poor compliance DSM 5 DX - DSM 5 DSM 5 Diagnosis: bipolar I disorder MRE mixed severe - Recommended/Plan of Treatment Treatment Recommendations and Plan of Treatment: start depakote 500mg daily and 750mg qhs start abilify 5mg daily increase gradually reasses memory deficits using MSE/ if needed will request neuropsychological testing consult internal medicine consult for reported vomiting and poor appetite cbt group and supportive therapy
[2018-12-24] MEDS: Divalproex 250 mg DR(BID formulation) PO SCH (21:49)
[2018-12-25] MEDS: Divalproex 500 mg DR(BID formulation) PO SCH (09:01)
--- NOTE | 2018-12-25 16:16 | PCM.PYCHPN ---
Psychiatric Progress Note - Psychiatric Progress Note Patient seen today, length of contact: pt evaluated discussed with team chart reviewed Patient Chief Complaint: I had no sleep last night Problems Identified/Issues Discussed: pt evaluated seen in bed, presenting with anxious mood irritable affect, continues to report feeling depressed , angry and edgy, continues to be guarded evasive, reports passive suicidal ideation without active plan on the unit, reported poor sleep with early insomnia , continues to islate himself discussed increasing abilify, encouraged pt to attend groups Medical Problems: multiple inpatient hospitalizations, hx of non compliance with treatment DSM 5 Symptoms Update: bipolar I disorder MRE mixed severe cannabis use cocaine use Medication Change: Yes (increase abilify) Medical Record Reviewed: Yes Mental Status Examination - Cognitive Function Orientation: Person, Place, Situation Memory: Impaired, Recent Attention: WNL Concentration: Poor Association: WNL Decription of patient's judgement and insights: partial insight poor judgment - Mood Mood: Depressed, Anxious - Affect Affect: Constricted - Speech Speech: Appropriate - Formal Thought Process Formal Thought Process: Paranoia, Circumstantial - Suicidal Ideation Suicidal Ideation: Yes - Homicidal Ideation Homicidal Ideation: No Goal/Treatment Plan - Goal/Treatment Plan Need for Continued Stay: Severe depression anxiety, Discharge may exacerbated symptoms Progress Toward Problem(s) and Goals/Treatment Plan: depakote 500mg daily and 750mg qhs increase abilify 10mg daily reasses memory deficits using MSE/ if needed will request neuropsychological testing consult internal medicine consult for reported vomiting and poor appetite cbt group and supportive therapy
--- NOTE | 2018-12-25 17:41 | CP.PCM.CON ---
History of Present Illness - History of Present Illness History of Present Illness: 33 yo male with history Bipolar DO admitted to psyche unit because of worsening depression Review of Systems - Review of Systems All systems: reviewed and no additional remarkable complaints except (aside from those mentioned above, 12 point system review were negative by me) Past Patient History - Tetanus Immunizations Tetanus Immunization: Unknown - Past Medical History & Family History Past Medical History?: No - Past Social History Smoking Status: Light Smoker < 10 Cigarettes Daily Chewing Tobacco Use: No Cigar Use: No Alcohol: Occasional Drugs: Cannabis, Cocaine - CARDIAC Hx Cardiac Disorders: No Hx Hypertension: No - PULMONARY Hx Respiratory Disorders: No Hx Tuberculosis: No - NEUROLOGICAL Hx Neurological Disorder: No Hx Seizures: No - HEENT Hx HEENT Problems: No - RENAL Hx Chronic Kidney Disease: No - ENDOCRINE/METABOLIC Hx Endocrine Disorders: No - HEMATOLOGICAL/ONCOLOGICAL Hx Blood Disorders: No Hx Human Immunodeficiency Virus (HIV): No - INTEGUMENTARY Hx Dermatological Problems: No - MUSCULOSKELETAL/RHEUMATOLOGICAL Hx Musculoskeletal Disorders: No - GASTROINTESTINAL Hx Gastrointestinal Disorders: No - GENITOURINARY/GYNECOLOGICAL Hx Sexually Transmitted Disorders: No - PSYCHIATRIC Hx Substance Use: Yes - SURGICAL HISTORY Hx Surgeries: Yes Other/Comment: right knee sx @ age 11 - ANESTHESIA Hx Anesthesia: Yes Hx Anesthesia Reactions: No Meds Allergies/Adverse Reactions: Allergies Allergy/AdvReac Type Severity Reaction Status Date / Time No Known Allergies Allergy Verified 12/23/18 16:29 - Medications Medications: Current Medications Acetaminophen (Tylenol 325mg Tab) 650 mg PO Q4 PRN PRN Reason: pain 4-7 Al Hydrox/Mg Hydrox/Simethicone (Maalox Plus 30 Ml) 30 ml PO Q4 PRN PRN Reason: Dyspepsia Last Admin: 12/24/18 12:59 Dose: 30 ml Aripiprazole (Abilify) 10 mg PO DAILY [facility] Diphenhydramine HCl (Benadryl) 50 mg IM Q6 PRN PRN Reason: Extrapyramidal S/S Unable PO Diphenhydramine HCl (Benadryl) 50 mg PO Q6 PRN PRN Reason: Extrapyramidal Symptoms Diphenhydramine HCl (Benadryl) 50 mg PO HS PRN PRN Reason: Sleep Divalproex Sodium (Depakote Dr(*Bid*)) 500 mg PO DAILY [facility] Last Admin: 12/25/18 09:01 Dose: 500 mg Divalproex Sodium (Depakote Dr(*Bid*)) 750 mg PO HS [facility] Last Admin: 12/24/18 21:49 Dose: 750 mg Haloperidol (Haldol) 5 mg PO Q4 PRN PRN Reason: Agitation Haloperidol Lactate (Haldol) 5 mg IM Q4 PRN PRN Reason: Agitation, Unable to Take PO Lorazepam (Ativan) 2 mg IM Q6 PRN PRN Reason: Anxiety/Agitation,Unable PO Lorazepam (Ativan) 1 mg PO Q8 PRN PRN Reason: Anxiety/Agitation Last Admin: 12/23/18 23:07 Dose: 1 mg Magnesium Hydroxide (Milk Of Magnesia) 30 ml PO HS PRN PRN Reason: Constipation Ondansetron HCl (Zofran Odt) 4 mg PO Q6 PRN PRN Reason: Nausea/Vomiting Last Admin: 12/25/18 13:38 Dose: 4 mg Physical Exam - Constitutional Appears: No Acute Distress - Head Exam Head Exam: ATRAUMATIC - Eye Exam Eye Exam: absent: Scleral icterus - ENT Exam ENT Exam: Mucous Membranes Moist - Neck Exam Neck exam: Negative for: Meningismus - Respiratory Exam Respiratory Exam: absent: Rales, Rhonchi, Wheezes, Respiratory Distress - Cardiovascular Exam Cardiovascular Exam: REGULAR RHYTHM, +S1, +S2 - GI/Abdominal Exam GI & Abdominal Exam: Soft. absent: Tenderness - Rectal Exam Rectal Exam: Deferred - Extremities Exam Extremities exam: Positive for: normal inspection - Neurological Exam Neurological exam: Alert, Oriented x3 - Psychiatric Exam Psychiatric exam: Normal Affect - Skin Skin Exam: Dry, Intact Results - Vital Signs Recent Vital Signs: Last Vital Signs Temp 97.7 F 12/25/18 09:00 Pulse 55 L 12/25/18 09:00 Resp 18 12/25/18 09:00 BP 119/59 L 12/25/18 09:00 Pulse Ox 98 12/23/18 22:20 - Labs Result Diagrams: 12/23/18 18:40 12/23/18 18:40 Assessment & Plan (1) Depression Status: Acute Comment: psyche is managing
[2018-12-25] MEDS: Divalproex 250 mg DR(BID formulation) PO SCH (21:00)
[2018-12-26] MEDS ORDERED: Trimethobenzamide 200 mg/2 mL Inj IM ONE (04:38)
[2018-12-26] MEDS: Divalproex 500 mg DR(BID formulation) PO SCH (09:36)
--- NOTE | 2018-12-26 12:53 | PCM.PYCHPN ---
Psychiatric Progress Note - Psychiatric Progress Note Patient seen today, length of contact: pt evaluated discussed with team chart reviewed Patient Chief Complaint: I am tired Problems Identified/Issues Discussed: pt evaluated seen in bed, continues to have gastrointestinal problems, with nausea and difficulty to keep fluids or fluid in, pt related his GIT problems to increased anxiety he stated feeling anxious as he is always misunderstood by his family and being judged that he is not putting enough effort to improve his financial situation, he reported feeling overwhelmed as he is not able to improve his living situation and contribute financially as expected by his girl friend pt reported a lot of responsibility being put on him resulting in him being frustrated, acting out and taking the anger on himself by banging his head or punching himself discussed with pt the more healthy alternative coping skills with anger rather than self harm, discussed changing medications to liquid form for more tolerance encouraged pt to attend groups, pt denied any current active thoughts of self harm on the unit denied perceptual disturbances Medical Problems: multiple inpatient hospitalizations, hx of non compliance with treatment DSM 5 Symptoms Update: bipolar I disorder depressed severe Medication Change: No Medical Record Reviewed: Yes Mental Status Examination - Cognitive Function Orientation: Person, Place, Situation Memory: Impaired, Recent Attention: WNL Concentration: Poor Association: WNL Decription of patient's judgement and insights: partial insight poor judgment - Mood Mood: Depressed, Anxious - Affect Affect: Constricted - Speech Speech: Appropriate - Formal Thought Process Formal Thought Process: Paranoia, Circumstantial - Suicidal Ideation Suicidal Ideation: No - Homicidal Ideation Homicidal Ideation: No Goal/Treatment Plan - Goal/Treatment Plan Need for Continued Stay: Severe depression anxiety, Discharge may exacerbated symptoms Progress Toward Problem(s) and Goals/Treatment Plan: depakote 500mg daily and 750mg qhs abilify 10mg daily internal medicine consult for reported vomiting and poor appetite cbt group and supportive therapy
[2018-12-26] MEDS: Valproic Acid 250 mg/5 ml UD Cup PO SCH (21:07)
--- NOTE | 2018-12-27 08:31 | PCM.PYCHPN ---
Psychiatric Progress Note - Psychiatric Progress Note Patient seen today, length of contact: pt evaluated discussed with team chart reviewed Patient Chief Complaint: pt reports feeling less irritible and less anxious on depakote and abilify and reports some im provement in the GI symptoms and denies vomiting and nausea and able to have a toast this am.no side effects to meds .pt remains with limited insight and need further stabilization. Medication Change: No Medical Record Reviewed: Yes Mental Status Examination - Cognitive Function Orientation: Person, Place, Situation Memory: Impaired, Recent Attention: WNL Concentration: Poor Association: WNL - Mood Mood: Depressed, Anxious - Affect Affect: Constricted - Speech Speech: Appropriate - Formal Thought Process Formal Thought Process: Paranoia, Circumstantial - Suicidal Ideation Suicidal Ideation: No - Homicidal Ideation Homicidal Ideation: No Goal/Treatment Plan - Goal/Treatment Plan Need for Continued Stay: Severe depression anxiety, Discharge may exacerbated symptoms Progress Toward Problem(s) and Goals/Treatment Plan: will continue the current regimen of abilify and depakote and will check valproic acid level in am to titrate the meds . medical follow up by hospitalist for GI issues.
[2018-12-27] MEDS: Valproic Acid 250 mg/5 ml UD Cup PO SCH ×2 (09:31→21:26)
[2018-12-28] MEDS: Valproic Acid 250 mg/5 ml UD Cup PO SCH ×2 (08:49→21:16)
[2018-12-28 09:13] VITALS: RESP 18
--- NOTE | 2018-12-28 13:04 | PCM.PYCHPN ---
Psychiatric Progress Note - Psychiatric Progress Note Patient seen today, length of contact: pt evaluated discussed with team chart reviewed Patient Chief Complaint: pt reports trouble sleeping and makes him more anxious but overall pt is feeling less irritible and less anxious on depakote and abilify and reports some im provement in the GI symptoms and denies vomiting and nausea and able to have a toast this am.no side effects to meds .pt remains with limited insight and need further stabilization. Medication Change: Yes (add trazodone) Medical Record Reviewed: Yes Mental Status Examination - Cognitive Function Orientation: Person, Place, Situation Memory: Impaired, Recent Attention: WNL Concentration: Poor Association: WNL - Mood Mood: Depressed, Anxious - Affect Affect: Constricted - Speech Speech: Appropriate - Formal Thought Process Formal Thought Process: Paranoia, Circumstantial - Suicidal Ideation Suicidal Ideation: No - Homicidal Ideation Homicidal Ideation: No Goal/Treatment Plan - Goal/Treatment Plan Need for Continued Stay: Severe depression anxiety, Discharge may exacerbated symptoms Progress Toward Problem(s) and Goals/Treatment Plan: will continue the current regimen of abilify and depakote and will check valproic acid level in am to titrate the meds will add trazodone 50 mg hs for insomnia.. medical follow up by hospitalist for GI issues.
[2018-12-29] MEDS: Valproic Acid 250 mg/5 ml UD Cup PO SCH (09:44)
--- NOTE | 2018-12-29 14:37 | PCM.PYCHPN ---
Psychiatric Progress Note - Psychiatric Progress Note Patient seen today, length of contact: pt evaluated discussed with team chart reviewed Patient Chief Complaint: I am handling food much better now Problems Identified/Issues Discussed: pt evaluated , observed pacing on the unit , more interactive with staff and other patients, less isolative, attending groups , reported currently able to handle food and medications better , patient reported feeling calmer and less irritable with starting back on depakote and abilify, no reported side effects, denied current thoughts of self harm, denied any current changes in memory stating my brain is less foggy, educated patient about pseudodementia and possible effect of depressed mood on his memory, discussed starting therapy on discharge, pt denied any current perceptual disturbances Medical Problems: multiple inpatient hospitalizations, hx of non compliance with treatment DSM 5 Symptoms Update: bipolar I disorder mixed severe Medication Change: No Medical Record Reviewed: Yes Mental Status Examination - Cognitive Function Orientation: Person, Place, Situation Memory: Impaired, Recent Attention: WNL Concentration: Poor Association: WNL - Mood Mood: Depressed, Anxious - Affect Affect: Constricted - Speech Speech: Appropriate - Formal Thought Process Formal Thought Process: Paranoia, Circumstantial - Suicidal Ideation Suicidal Ideation: No - Homicidal Ideation Homicidal Ideation: No Goal/Treatment Plan - Goal/Treatment Plan Need for Continued Stay: Severe depression anxiety, Discharge may exacerbated symptoms Progress Toward Problem(s) and Goals/Treatment Plan: depakote 500mg daily and 750mg qhs/ depakote level 87 abilify 10mg daily cbt group and supportive therapy
[2018-12-29] MEDS ORDERED: Divalproex 250 mg DR(BID formulation) PO SCH (22:00)
[2018-12-30] MEDS ORDERED: Divalproex 500 mg DR(BID formulation) PO SCH (09:00)
[2018-12-30 09:55] VITALS: BP 115/70; PULSE 66; TEMP 97.8
--- NOTE | 2018-12-30 11:40 | PCM.PYCHDC ---
Mental Status Examination - Mental Status Examination Orientation: Person, Place, Situation Memory: Intact Mood: Neutral Affect: Broad Speech: Appropriate Attention: WNL Concentration: WNL Association: WNL Fund of Knowledge: WNL Formal Thought Process: No Impairment, Circumstantial Description of patient's judgement and insight: partial insight fair judgment Psychotic Thoughts and Behaviors: pt denied any psychotic symptoms, non elicited Suicidal Ideation: No Current Homicidal Ideation?: No Discharge Summary - Discharge Note Reason for Hospitalization: pt is 33ys old male with previous diagnosis of bipolar disorder, currently non compliant with medications or follow up, since last august, pt has been increasingly depressed in the context of inability to concentrate at work resulting in failure to meet deadlines , has been increasingly irritable, angry, with poor impulse control , episodes of being verbally abusive towards girl friend and mother, episodes of banging his head against the wall and punching himself', pt on evaluation, unkempt, irritable, angry, reported feeling depressed , 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 Reason for request. 2. Findings. 3. Follow-up Summary of Hospital Course include:: 1. Description of specific treatment plan utilized for patients during their course of treatmen. 2. Summarize the time- course for resolution of acute symptoms and/or regressed behaviors. 3. Describe issues identified and worked on during hospitalization. 4. Describe medication utilized. 5. Describe medical problems identified and treated. 6. Reassessment of suicide risk Summary of Hospital Course: pt ON admission presented with anxious depressed mood, irritable affect, reported feeling confused with poor concentration and memory difficulties, pt also presented with gastrointestinal problems including nausea and poor appetite/ Internal medicine consult was requested and patient was managed accordingly pt was started on depakote for mood stabilization , it was increased to 500 mg daily and 750mg qhs / depakote level was 87 pt was also started on abilify it was increased goldy 10mg pt gradually presented with brighter affect, was less irritable, participated in treatment and attended groups, no reported side effects of medications motivational therapy was provided in reference to cocaine and cannabis use, pt agreed to start treatment at [facility] program on discharge mental status was stable, pt denied any current suicidal or homici sasha ideation denied perceptual disturbances - Diagnosis (1) Bipolar 1 disorder Current Visit: Yes Status: Acute (2) Impulse control disorder Current Visit: Yes Status: Acute - Final Diagnosis (DSM 5) Condition upon Discharge: STABLE DSM 5: Bipolar I disorder MRE mixed severe without psychotic features Disposition: HOME/ ROUTINE Follow-up Treatment Plan: [facility] steps program Prescriptions/Medication Reconciliation: ARIPiprazole [Abilify] 10 mg PO DAILY 30 Days #30 tab Divalproex [Depakote DR(*BID*)] 750 mg PO HS 30 Days #90 tcp Divalproex [Depakote DR(*BID*)] 500 mg PO DAILY 30 Days #30 tcp traZODone [Desyrel] 50 mg PO HS 30 Days #30 tab - Antipsychotic Medications Pt discharged on 2 or more routine antipsychotic medications: No
== END 2018-12-30 14:06 | disposition home or self-care (01) | DRG 430 ==
LOC: H.ER 16:21 → H.ERHOLD 20:07 → H.PSYCH 22:22
PROVIDERS: ADMIT Psychiatry & Neurology Psychiatry; ATTEND Psychiatry & Neurology Psychiatry
PROC: GZHZZZZ Group Psychotherapy (ICD-10-PCS; principal; 2018-12-23)
PROC: GZ58ZZZ Individual Psychotherapy, Cognitive-Behavioral (ICD-10-PCS; 2018-12-23)
PROC: GZ56ZZZ Individual Psychotherapy, Supportive (ICD-10-PCS; 2018-12-23)
DX: F31.63 Bipolar disorder, current episode mixed, severe, without psychotic features (principal); F14.90 Cocaine use, unspecified, uncomplicated; F17.210 Nicotine dependence, cigarettes, uncomplicated; G47.00 Insomnia, unspecified; R45.851 Suicidal ideations; Z91.19 Patient's noncompliance with other medical treatment and regimen; F63.9 Impulse disorder, unspecified; Z91.14 Patient's other noncompliance with medication regimen; F41.9 Anxiety disorder, unspecified; F12.90 Cannabis use, unspecified, uncomplicated

== ENCOUNTER 2019-02-25 16:48 | Emergency (ER) | payer MEDICAID ==
[2019-02-25 16:56] VITALS: BP 129/89; PULSE 75; RESP 18; TEMP 98.2; O2SAT 98
--- NOTE | 2019-02-25 18:26 | ED PDOC ---
HPI: General Adult Time Seen by Provider: 02/25/19 18:09 Chief Complaint (Nursing): Med Refill Chief Complaint (Provider): Med Refill History Per: Patient History/Exam Limitations: no limitations Additional Complaint(s): 33 year old male presents to the ED for medication refill. 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 He reports being told to come to ED for refills of his Depakote and Abilify. Offers no complaints at this time, denying suicidal / homicidal ideation, and visual / auditory hallucinations. Past Medical History Reviewed: Historical Data, Nursing Documentation, Vital Signs Vital Signs: Last Vital Signs Temp 98.2 F 02/25/19 16:55 Pulse 75 02/25/19 16:55 Resp 18 02/25/19 16:55 BP 129/89 02/25/19 16:55 Pulse Ox 98 02/25/19 16:55 Primary Care Provider: Marian Gant - Medical History PMH: Bipolar Disorder, Depression Denies: Diabetes, Hepatitis, HIV, HTN, Chronic Kidney Disease, Seizures, Sexually Transmitted Disease - Surgical History Other surgeries: right knee surgery - Family History Family History: States: Unknown Family Hx - Social History Current smoker - smoking cessation education provided: Yes Alcohol: None Drugs: Denies - Home Medications Home Medications: Ambulatory Orders Medication Instructions Recorded ARIPiprazole [Abilify] 10 mg PO DAILY 30 Days #30 tab 12/30/18 Divalproex [Depakote DR(*BID*)] 500 mg PO DAILY 30 Days #30 tcp 12/30/18 Divalproex [Depakote DR(*BID*)] 750 mg PO HS 30 Days #90 tcp 12/30/18 traZODone [Desyrel] 50 mg PO HS 30 Days #30 tab 12/30/18 ARIPiprazole [Abilify] 10 mg PO DAILY #14 tab 02/25/19 Divalproex [Depakote DR (*BID*)] 750 mg PO HS #14 tcp 02/25/19 Divalproex [Depakote DR(*BID*)] 500 mg PO DAILY #14 tcp 02/25/19 - Allergies Allergies/Adverse Reactions: Allergies Allergy/AdvReac Type Severity Reaction Status Date / Time No Known Allergies Allergy Verified 12/23/18 16:29 Review of Systems ROS Statement: Except As Marked, All Systems Reviewed And Found Negative Psych: Negative for: Suicidal ideation (or homicidal ideation), Other (visual / auditory hallucinations) Physical Exam - Reviewed Nursing Documentation Reviewed: Yes Vital Signs Reviewed: Yes - Physical Exam Comments: GENERAL APPEARANCE: Patient is awake, alert, oriented x 3, in no acute distress. HEART AND CARDIOVASCULAR: RRR CHEST AND RESPIRATORY: breath sounds equal and non-labored. NEURO AND PSYCH: Mental status as above. Affect: normal. - ECG O2 Sat by Pulse Oximetry: 98 (RA) Pulse Ox Interpretation: Normal Medical Decision Making Medical Decision Making: Time: 1824 Initial Impression: medication refill Initial Plan: --Consult [facility] for more information 1829 Spoke with Cabrera from [facility] who states they had an agreement with [facility] to get their patient's medications, but the doctor is no longer there. He states he tried everything he could to get the patient his meds, but was unsuccessful, so sent him to the ED. Cabrera notes they should have a doctor again by the beginning of March, so patient will need a two week prescription. Upon review of old chart from 12/30/[address] William, patient's dosages are as follows: Abilify 10mg daily, Depakote 500mg daily, and Depakote 750mg at bedtime. Discussed results, diagnosis, treatment, return precautions and f/u with pt who is understanding, in agreement and stable for dc Scribe Attestation: Documented by Nela Mace, acting as a scribe for Pepe Brown PA-C. Provider Scribe Attestation: All medical record entries made by the Scribe were at my direction and personally dictated by me. I have reviewed the chart and agree that the record accurately reflects my personal performance of the history, physical exam, medical decision making, and the department course for this patient. I have also personally directed, reviewed, and agree with the discharge instructions and disposition. Disposition - Clinical Impression Clinical Impression: Prescription refill - Patient ED Disposition Is Patient to be Admitted: No Counseled Patient/Family Regarding: Studies Performed, Diagnosis, Need For Followup, Rx Given - Disposition Referrals: [facility] [Outside] Disposition: Routine/Home Disposition Time: 18:38 Condition: STABLE Additional Instructions: Return to ED for new or worsening symptoms. Follow up with Jessi gifford and your doctor as scheduled. Take medications as prescribed Prescriptions: ARIPiprazole [Abilify] 10 mg PO DAILY #14 tab Divalproex [Depakote DR (*BID*)] 750 mg PO HS #14 tcp Divalproex [Depakote DR(*BID*)] 500 mg PO DAILY #14 tcp Forms: [employer] (French) Print Language: GU[place]AL[place] - POA Present On Arrival: None
== END 2019-02-25 18:45 | disposition home or self-care (01) ==
LOC: H.ER 16:48
DX: Z76.0 Encounter for issue of repeat prescription (principal); F31.9 Bipolar disorder, unspecified

== ENCOUNTER 2019-03-11 16:39 | Emergency (ER) | payer MEDICAID ==
[2019-03-11 17:25] VITALS: BP 118/73; PULSE 87; RESP 16; TEMP 98.4; O2SAT 97
--- NOTE | 2019-03-11 18:39 | ED PDOC ---
HPI: General Adult Time Seen by Provider: 03/11/19 17:38 Chief Complaint (Nursing): Med Refill Chief Complaint (Provider): Med Refill History Per: Patient History/Exam Limitations: no limitations Onset/Duration Of Symptoms: Days Current Symptoms Are (Timing): Still Present Additional Complaint(s): Patient is a 33 y/o male with a PMHx of depression and bipolar disorder who is requesting a prescription refill for Depakote and Abilify. Patient states he has been trying to get an appointment with Jessi Smith at the [facility] to refill his medication, however, has been unable to do so because they are so backed up. Patient claims he has only one day left of his current medication. Patient denies suicidal or homicidal ideation and any further medical complaints. PCP: None Past Medical History Reviewed: Historical Data, Nursing Documentation, Vital Signs Vital Signs: Last Vital Signs Temp 98.4 F 03/11/19 17:19 Pulse 87 03/11/19 17:19 Resp 16 03/11/19 17:19 BP 118/73 03/11/19 17:19 Pulse Ox 97 03/11/19 17:19 Primary Care Provider: FAMILY PROVIDER,NO - Medical History PMH: Bipolar Disorder, Depression Denies: Diabetes, Hepatitis, HIV, HTN, Chronic Kidney Disease, Seizures, Sexually Transmitted Disease - Surgical History Surgical History: No Surg Hx - Family History Family History: States: Unknown Family Hx - Home Medications Home Medications: Ambulatory Orders Medication Instructions Recorded ARIPiprazole [Abilify] 10 mg PO DAILY 30 Days #30 tab 12/30/18 Divalproex [Depakote DR(*BID*)] 500 mg PO DAILY 30 Days #30 tcp 12/30/18 Divalproex [Depakote DR(*BID*)] 750 mg PO HS 30 Days #90 tcp 12/30/18 traZODone [Desyrel] 50 mg PO HS 30 Days #30 tab 12/30/18 ARIPiprazole [Abilify] 10 mg PO DAILY #14 tab 02/25/19 Divalproex [Depakote DR (*BID*)] 750 mg PO HS #14 tcp 02/25/19 Divalproex [Depakote DR(*BID*)] 500 mg PO DAILY #14 tcp 02/25/19 ARIPiprazole [Abilify] 10 mg PO DAILY #7 tab 03/11/19 Divalproex [Depakote DR (*BID*)] 750 mg PO HS #21 ect 03/11/19 Divalproex [Depakote DR(*BID*)] 500 mg PO BID 7 Days #14 tab 03/11/19 - Allergies Allergies/Adverse Reactions: Allergies Allergy/AdvReac Type Severity Reaction Status Date / Time No Known Allergies Allergy Verified 03/11/19 17:18 Review of Systems ROS Statement: Except As Marked, All Systems Reviewed And Found Negative Psych: Negative for: Suicidal ideation (or homicidal ideation) Physical Exam - Reviewed Nursing Documentation Reviewed: Yes Vital Signs Reviewed: Yes - Physical Exam Comments: GENERAL APPEARANCE: Patient is awake, alert, oriented x 3, in no acute distress. SKIN: Warm, dry; (-) cyanosis HEAD: (-) scalp swelling, (-) scalp tenderness. EYES: (-) conjunctival pallor, (-) scleral icterus, (-) nystagmus. ENMT: Mucous membranes moist. Airway patent: (-) stridor. NECK: (-) tenderness, (-) stiffness, (-) lymphadenopathy. HEART AND CARDIOVASCULAR: (-) irregularity; (-) murmur, (-) gallop. CHEST AND RESPIRATORY: (-) rales, (-) rhonchi, (-) wheezes; breath sounds equal. ABDOMEN: Soft, (-) distention, (-) tenderness, (-) guarding. NEURO AND PSYCH: Mental status as above. 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 Pupils equal and reactive; EOMI; (-) facial asymmetry; tongue and uvula midline. Strength and DTRs symmetric. - ECG O2 Sat by Pulse Oximetry: 97 (RA) Pulse Ox Interpretation: Normal Medical Decision Making Medical Decision Making: Time: 1744 Impression: Prescription Refill Plan: Spoke to Donna from crisis who spoke to Dr. Edgar who agrees to seven day refill for both medication. The [facility] does not have an appointment until April, however, will try to get patient a sooner appointment. Pt also provided with 3 additional resources to help him find a psychiatrist. Discussed results, diagnosis, treatment, return precautions and f/u with pt who is understanding, in agreement and stable for dc Scribe Attestation: Documented by Leonardo Matta, acting as a scribe Quentin Rincon PA-C. Provider Scribe Attestation: All medical record entries made by the Scribe were at my direction and personally dictated by me. I have reviewed the chart and agree that the record accurately reflects my personal performance of the history, physical exam, medical decision making, and the department course for this patient. I have also personally directed, reviewed, and agree with the discharge instructions and disposition. Disposition - Clinical Impression Clinical Impression: Prescription refill - Patient ED Disposition Is Patient to be Admitted: No Counseled Patient/Family Regarding: Studies Performed, Diagnosis, Need For Followup, Rx Given - Disposition Referrals: information, hand given [Other] Disposition: Routine/Home Disposition Time: 18:30 Condition: STABLE Additional Instructions: Thank you for letting us take care of you today. The emergency medical care you received today was directed at your acute symptoms. If you were prescribed any medication, please fill it and take as directed. It may take several days for your symptoms to resolve. Return to the Emergency Department if your symptoms worsen, do not improve, or if you have any other problems. Please contact your doctor in 2 days for re-evaluation and follow up / or call one of the physicians/clinics you have been referred to that are listed on the Patient Visit Information form that is included in your discharge packet. Bring any paperwork you were given at discharge with you along with any medications you are taking to your follow up visit. Our treatment cannot replace ongoing medical care by a primary care provider (PCP) outside of the emergency department. Prescriptions: ARIPiprazole [Abilify] 10 mg PO DAILY #7 tab Divalproex [Depakote DR(*BID*)] 500 mg PO BID 7 Days #14 tab Divalproex [Depakote DR (*BID*)] 750 mg PO HS #21 ect Forms: [employer] (Czech) Print Language: YI - POA Present On Arrival: None
== END 2019-03-11 18:43 | disposition home or self-care (01) ==
LOC: H.ER 16:39
DX: Z76.0 Encounter for issue of repeat prescription (principal)